=== PATIENT | female | born 1950 | race Caucasian/White ===

== ENCOUNTER 2017-08-09 05:46 | Outpatient (CLI) | payer MEDICARE ==
[~2017-08-09] VITALS: Ht 166.4 cm; Wt 104.3 kg
[2017-08-09] MEDS ORDERED: CITA20TA7 PO (14:49)
[2017-08-09] MEDS ORDERED: POTA99TA21 PO (14:49)
[2017-08-09] MEDS ORDERED: ROSU40TA21 PO (14:49)
[2017-08-09] MEDS ORDERED: CHOL5000 PO (14:49)
[2017-08-09] MEDS ORDERED: UBID1CAP PO (14:49)
[2017-08-09] MEDS ORDERED: MAGN250T13 PO (14:49)
[2017-08-09] MEDS ORDERED: DOCU100T7 PO (14:49)
[2017-08-09] MEDS ORDERED: HYDR-3820 PO (14:49)
[2017-08-09] MEDS ORDERED: METO-333 PO (14:49)
[2017-08-09] MEDS ORDERED: HYDR25TA4 PO (14:49)
[2017-08-09] MEDS ORDERED: FOLI1TAB57 PO (14:49)
== END 2017-08-09 14:50 ==
LOC: PREOP 05:46
PROVIDERS: ATTEND Surgery
DX: Z01.818 Encounter for other preprocedural examination (principal); K21.9 Gastro-esophageal reflux disease without esophagitis; R10.13 Epigastric pain; Z86.010 Personal history of colon polyps; R19.4 Change in bowel habit

== ENCOUNTER 2017-08-16 08:16 | Day surgery (SDC) | payer MEDICARE, OTHER ==
[~2017-08-16] VITALS: Ht 166.4 cm; Wt 104.3 kg
[~2017-08-16 08:16] MED LIST: CHOL5000 PO; CITA20TA7 PO; DOCU100T7 PO; FOLI1TAB57 PO; HYDR-3820 PO; HYDR25TA4 PO; MAGN250T13 PO; METO-333 PO; POTA99TA21 PO; ROSU40TA21 PO; UBID1CAP PO
[2017-08-16 08:35] VITALS: BP 133/74
[2017-08-16] MEDS ORDERED: NS IV 500 ML 500 ML ONE (08:38)
[2017-08-16] MEDS ORDERED: NS IV 500 ML 500 ML IV PRN (08:41)
[2017-08-16] MEDS ORDERED: HURRICAINE EXT TUBE (BENZOCAINE) XX PRN (08:45)
--- NOTE | 2017-08-16 09:01 | Conscious Sedation/ASA ---
Conscious Sedation Pre-Proced Time Reviewed: 09:01 ASA Class: 2 Airway Mallampati Classification: (angoon appropriate class) I. II. III, IV Lungs Heart ASA score ASA 1: a normal healthy patient ASA 2: a patient with a mild systemic disease (mid diabetes, controlled hypertension, obesity ASA 3: a patient with a severe systemic disease that limits activity (angina , COPD, prior Myocardial infarction) ASA 4: a patient with an incapacitating disease that is a constant threat to life (CHF, renal failure) ASA 5: a moribund patient not expected to survive 24 hrs. (ruptured aneurysm) ASA 6: a declared brain patient whose organs are being harvested. For emergent operations, add the letter E after the classification Grade 2 Sedation Plan: Discussed options with patient/fam Note The patient is an appropriate candidate to undergo the planned procedure, sedation, and anesthesia. The patient immediately re-assessed prior to indication. KALEE CASAREZ MD Aug 16, 2017 9:01 am
--- NOTE | 2017-08-16 09:01 | History & Physicial ---
History of Present Illness History of Present Illness Reason for visit/HPI To undergo upper endoscopy regarding epigastric pain and surveillance colonoscopy. Personal history of polyps Date of Admission 08/16/17 Date Seen by Provider: Aug 16, 2017 Time Seen by Provider: 08:53 I consulted on this patient on 08/16/17 08:51 Attending Physician Kalee Camp MD Admitting Physician Ivis Land DO Consult Allergies and Home Medications Allergies Coded Allergies: NSAIDS (Non-Steroidal Anti-Inflamma (Verified Allergy, Severe, ANAPHYLAXIS , 08/09/17) Sulfa (Sulfonamide Antibiotics) (Verified Allergy, Mild, ITCHING, 08/09/17) Home Medications Cholecalciferol (Vitamin D3) 5,000 Unit Capsule, 5,000 UNIT PO DAILY, (Reported) Citalopram Hydrobromide 20 Mg Tablet, 20 MG PO DAILY, (Reported) Docusate Sodium 100 Mg Tablet, 200 MG PO DAILY, (Reported) Hydrochlorothiazide 25 Mg Tablet, 25 MG PO DAILY, (Reported) Hydrocodone/Acetaminophen 1 Each Tablet, 1 EACH PO DAILY, (Reported) Magnesium Oxide 250 Mg Tablet, 250 MG PO DAILY, (Reported) Metoprolol Tartrate 25 Mg Tablet, 25 MG PO DAILY, (Reported) Mv,Ca,Min/Iron Fum/FA/Vit K 1 Each Tablet, 1 EACH PO DAILY, (Reported) Potassium Gluconate 99 Mg Tablet, 99 MG PO DAILY, (Reported) Rosuvastatin Calcium 40 Mg Tablet, 80 MG PO DAILY, (Reported) Ubidecarenone/Vitamin E Mixed 1 Each Capsule, 1 EACH PO DAILY, (Reported) Patient Home Medication List Home Medication List Reviewed: Yes Past Ytsrirh-[id number]-Hrtnyh Hx Patient Social History Marrital Status: Employed/Student: retired Recent Foreign Travel: No Contact w/other who traveled: No Recent Hopitalizations: No Seasonal Allergies Seasonal Allergies: No Surgeries Yes Appendectomy, Gallbladder, Hysterectomy, Tonsillectomy Respiratory No Cardiovascular Yes High Cholesterol, Hypertension Neurological No Reproductive System Hx Reproductive Disorders: No Sexually Transmitted Disease: No HIV/AIDS: No 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 Gastrointestinal Yes Gastroesophageal Reflux, Chronic Constipation, Diverticulosis, Polyps Musculoskeletal Yes Arthritis, Chronic Back Pain Endocrine History of Endocrine Disorders: No HEENT Loss of Vision: Bilateral Hearing Impairment: Denies Psychosocial History of Psychiatric Problem: Yes Behavioral Health Disorders: Anxiety, Depression Integumentary Skin/Integumentary Disorders: Psoriasis Blood Transfusions Adverse Reaction to a Blood Tr: No (HAS HAD BLOOD WITH NO REACTION) Constitutional: no symptoms reported EENTM: no symptoms reported Respiratory: no symptoms reported Cardiovascular: no symptoms reported Gastrointestinal: see HPI Genitourinary: no symptoms reported Musculoskeletal: joint pain Skin: no symptoms reported Psychiatric/Neurological: Anxiety Physical Exam Vital Signs Capillary Refill : General Appearance: No Apparent Distress Neck: Normal Inspection Respiratory: Lungs Clear Cardiovascular: Regular Rate, Rhythm Gastrointestinal: Non Tender, Soft Rectal: Deferred Extremity: Normal Inspection Neurologic/Psychiatric: Alert, Oriented x3 Skin: Warm/Dry Assessment/Plan Assessment and Plan lady with epigastric pain, occasional dysphagia and previous history of polyps. For upper endoscopy with concomitant colonoscopy Problems: Admission Diagnosis Admission Status: Other (Outpt Proc) KALEE CAMP MD Aug 16, 2017 9:00 am
[2017-08-16] MEDS ORDERED: fentaNYL INJECTION 100 MCG/2 ML AMP ONE ×2 (09:25)
[2017-08-16] MEDS ORDERED: MIDAZOLAM 2 MG/2 ML (VERSED) VIAL ONE ×4 (09:25→09:53)
[2017-08-16] MEDS ORDERED: HURRICAINE EXT TUBE (BENZOCAINE) ONE (09:26)
[2017-08-16] MEDS: fentaNYL INJECTION 100 MCG/2 ML AMP IVP PRN ×3 (09:30→09:52)
[2017-08-16] MEDS: MIDAZOLAM 2 MG/2 ML (VERSED) VIAL IVP PRN ×4 (09:34→09:57)
--- NOTE | 2017-08-16 10:11 | Endo Procedure Record ---
Endo Procedure Report Date of Procedure Last Colonoscopy: Yes (2010) Aug 16, 2017 Surgeon (s) KALEE CASAREZ MD Post Procedure/Op Diagnosis EGD: Distal esophageal stricture. Gastric erosions Colonoscopy: Severe sigmoid diverticulosis Procedure Performed EGD with antral biopsy. Balloon dilatation of esophageal stricture Colonoscopy to cecum Description of Procedure Anesthesia Type: Conscious Sedation Specimen(s) collected/removed antral mucosa for H. pylori Description of the Procedure Indication for the procedures: This lady came in for an upper endoscopy to evaluate dysphagia and for surveillance colonoscopy. Informed consent was obtained after reviewing the procedures in detail. Description of procedures: EGD/antral biopsy for H. pylori/balloon dilatation of esophageal stricture: She was placed in left lateral decubitus position and her vital signs were monitored. Conscious sedation was achieved using Versed and fentanyl. The flexible gastroscope was introduced down the esophagus, past the stomach more into the proximal duodenum. Findings: Esophagus: A smooth, concentric stricture at the distal end, that is dilated to 20 mm with the balloon. Stomach: A few shallow erosions were found at the antrum. Biopsy for H. pylori was obtained Duodenum: Normal. She tolerated the procedure well and was turned around in preparation for colonoscopy Impression: Dysphagia due to distal esophageal stricture. Balloon dilatation completed. Incidental gastric erosions. Helicobacter status pending. Colonoscopy: Digital rectal examination was unremarkable. The colonoscope was then introduced into the rectum and advanced with some difficulty to the cecum. The scope was then withdrawn slowly and the mucosa examined in a systematic fashion. Findings: Quite severe sigmoid diverticulosis. No recurrent polyps were found She tolerated the procedures well and was taken back to the nursing area in a stable condition. Impression: Polyp surveillance. No recurrence. Severe sigmoid diverticulosis Copies To: XAVIER MONROY XAVIER M MD Aug 16, 2017 10:11 am
--- NOTE | 2017-08-16 10:13 | Discharge Inst-Simple/Standard ---
Discharge Inst-Standard Discharge Medications New, Converted or Re-Newed RX: Other Patient Instructions/Follow Up Plan of Care/Instructions/FU: High fiber diet. Repeat colonoscopy in 5 years Activity as Tolerated: Yes Discharge Diet: No Restrictions KALEE CASAREZ MD Aug 16, 2017 10:12 am
[2017-08-16 10:45] VITALS: BP 131/69
[2017-08-16 11:15] VITALS: BP 124/77
[2017-08-16 11:20] VITALS: BP 124/77
== END 2017-08-16 11:20 | disposition home or self-care (01) ==
LOC: ENDO 08:16
PROVIDERS: ATTEND Surgery
DX: K22.2 Esophageal obstruction (principal); K25.9 Gastric ulcer, unspecified as acute or chronic, without hemorrhage or perforation; K57.30 Diverticulosis of large intestine without perforation or abscess without bleeding; K59.09 Other constipation; Z86.010 Personal history of colon polyps; I10 Essential (primary) hypertension; E78.00 Pure hypercholesterolemia, unspecified; F41.9 Anxiety disorder, unspecified; F32.9 Major depressive disorder, single episode, unspecified

== ENCOUNTER → 2020-04-09 | Outpatient (CLI) | payer MEDICARE, OTHER ==
[~2020-04-09] MED LIST changes: +ACHYD1T PO; -CITA20TA7 PO; +CITA20TA9 PO; +HOLD METFORMIN - RECEIVED CONTRAST 20 ML VIAL IV SCH; -HYDR-3820 PO; +IOHEXOL 350 MG/ML 100 ML (OMNIPAQUE 350) VIAL IV ONE; +NS 100 ML (IVPB) BAG IV ONE; -ROSU40TA21 PO; +ROSU40TA23 PO
[2020-04-09 12:12] LABS: BUN/CREATININE RATIO 7; CREATININE SERUM 0.73 MG/DL (0.60-1.30); GFR ESTIMATED > 60
--- NOTE | 2020-04-09 12:56 | Diagnostic Imaging Report ---
PROCEDURE: CT angiography of the chest with contrast. TECHNIQUE: Multiple contiguous axial images were obtained through the chest after uneventful bolus administration of intravenous contrast. 3D reconstructed CTA MIP acquisitions were also performed. Auto Exposure Controls were utilized during the CT exam to meet ALARA standards for radiation dose reduction. INDICATION: Shortness of breath. COMPARISON: No prior studies are available for comparison. FINDINGS: Evaluation of the pulmonary arterial system is without evidence of thromboembolism. No filling defects are seen within central, lobar or segmental branches. Thoracic aorta is normal caliber. No dissection is seen. There is no pericardial fluid. There appears to be trace right-sided pleural fluid. Parenchymal evaluation does show patchy airspace and groundglass pulmonary infiltrates involving bilateral upper lobes as well as right middle lobe and lingula and bilateral lower lobes consistent with pneumonia. Pattern is suggestive of Covid pneumonia. Upper abdomen is unremarkable. IMPRESSION: 1. No evidence of pulmonary embolism or thoracic aortic dissection. 2. Trace right pleural effusion. 3. Diffuse bilateral airspace pulmonary infiltrates suggestive of pneumonia. Dictated by: Dictated on workstation # [id number]
== END ==
LOC: RAD 11:16
PROVIDERS: ATTEND Family Medicine
DX: U07.1 COVID-19 (principal)
CPT/HCPCS: 36415; 71275; 82565; 84520